=== PATIENT | female | born 1980 | race Caucasian/White ===

== ENCOUNTER 2019-08-29 09:15 | Inpatient (IN) | payer OTHER ==
[2019-08-29] MEDS ORDERED: DEXTROSE 5%-LACTATED RINGERS 1,000 ML IV SCH (09:30)
[2019-08-29] MEDS ORDERED: OXYTOCIN 30 UNITS in 0.9% NS 30 UNIT/500 ML INFUS.BAG IVPB SCH (10:00)
[2019-08-29] MEDS ORDERED: OXYTOCIN 20 UNITS in 0.9% NS 20 UNIT/1,000 ML INFUS.BAG IV ONE ×2 (10:22→16:16)
[2019-08-29 10:36] LABS: BASO % 0.4 % (0-2.0); EOS % 0.9 % (0-4.5); HEMOGLOBIN 10.9 GM/dL (10.7-15.3); LYMPH % 8.6 % (8-40); MCH 26.7 pg (25.7-33.7); MCHC 33.1 g/dl (32.0-36.0); MEAN CELL VOLUME 80.6 fl (80-96); MEAN PLT VOLUME 9.5 fl (7.5-11.1); MONO % 6.4 % (3.8-10.2); NEUT % 83.7 % (42.8-82.8); PLATELET COUNT 391 K/MM3 (134-434); RBC 4.09 M/mm3 (3.60-5.2); RDW 16.1 % (11.6-15.6); WHITE BLOOD COUNT 8.4 K/mm3 (4.0-10.0)
[2019-08-29 10:49] LABS: INR 0.88 (0.83-1.09); PROTHROMBIN TIME (PATIENT) 10.4 SEC (9.7-13.0)
[2019-08-29 10:52] LABS: ACTIVATED PTT 31.1 SECONDS (25.2-36.5)
[2019-08-29 11:20] LABS: BLOOD UREA NITROGEN 15.1 mg/dL (7-18); CALCIUM 8.8 mg/dL (8.5-10.1); CREATININE 0.8 mg/dL (0.55-1.3); POTASSIUM 3.9 mmol/L (3.5-5.1)
[2019-08-29] MEDS ORDERED: BUTORPHANOL TARTRATE 1 MG/ML VIAL ONE ×2 (13:54)
[2019-08-29] MEDS ORDERED: PROMETHAZINE HCL 25 MG/1 ML VIAL ONE (13:54)
[2019-08-29 14:17] VITALS: BMI 38.7
[2019-08-29] MEDS ORDERED: LIDOCAINE HCL 1% PRESERVATIVE FREE - 30ML VIAL ONE (16:36)
[2019-08-29] MEDS: OXYTOCIN 20 UNITS in 0.9% NS 20 UNIT/1,000 ML INFUS.BAG IV SCH (16:45)
[2019-08-29] MEDS ORDERED: ACETAMINOPHEN 325 MG TABLET (FP) ONE (16:56)
[2019-08-29] MEDS ORDERED: IBUPROFEN 600 MG TABLET (FP) PO ONE (16:56)
[2019-08-29] MEDS ORDERED: BISACODYL 10 MG SUPP.RECT RC PRN (17:24)
[2019-08-29] MEDS ORDERED: BENZOCAINE 28 GM HEMORRHOIDAL OINTMENT TP PRN (17:24)
[2019-08-29] MEDS ORDERED: BENZOCAINE 20% 57 GM BOTTLE TP PRN (17:24)
[2019-08-29] MEDS ORDERED: oxyCODONE HCL 5 MG TABLET PO PRN (17:24)
[2019-08-29] MEDS ORDERED: WITCH HAZEL 50% (TUCKS) 40 PAD/JAR PAD TP PRN (17:24)
[2019-08-29] MEDS ORDERED: METHYLERGONOVINE MALEATE 0.2 MG/1 ML AMP IM PRN (17:24)
[2019-08-29] MEDS: ACETAMINOPHEN 325 MG TABLET (FP) PO PRN (17:30)
[2019-08-29] MEDS: IBUPROFEN 600 MG TABLET (FP) PO PRN (17:30)
--- NOTE | 2019-08-29 17:42 | HP ---
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: Alzheimer's, CVA, Dementia, Migraine, Multiple Sclerosis, Peripheral Neuropathy, Parkinson's, Seizure, Syncope, TIA, Vertigo, Other Cardiovascular: No: AFIB, Aneurysm, Aortic Insufficiency, Aortic Stenosis, CAD, CHF, Deep Vein Thrombosis, HTN, Hyperlipdemia, MD, Mitral Insufficiency, Mitral Stenosis, Murmur, Pulmonary Hypertension, Other Pulmonary: No: Asthma, Bronchitis, Cancer, COPD, O2 Dependent, Pneumonia, Previously Intubated, Pulmonary Embolus, Pulmonary Fibrosis, Sleep Apnea, Other Gastrointestinal: No: Ascites, Cancer, Constipation, Crohn's Disease, Diverticulitis, Diverticulosis, Esophageal Varices, Gastritis, GERD, GI Bleed, Hemorrhoids, Hiatal Hernia, Inflamatory Bowel Disease, Irritable Bowel Disease, Pancreatitis, Peptic Ulcer Disease, Ulcerative Colitis, Other Hepatobiliary: No: Cirrhosis, Cholelithiasis, Cholecystitis, Choledocholithiasis , Hepatitis A, Hepatitis B, Hepatitis C, Other Renal/: No: Renal Failure, Renal Inusuff, BPH, Cancer, Hematuria, Hemodialysis , Neurogenic Bladder, Renal Calculi, UTI, Other Reproductive: No: Ectopic , Endometriosis, Fibroids, PID, Polycystic Ovary Syndrome, Postmenopausal, Other ...: 6 ...Para: 3 ...Term: 3 ...Spon : 2 ...EDC by Slim: 09/04/19 Heme/Onc: No: Anemia, B12 Deficiency, Bleeding Disorder, Cancer, Current Chemotherapy, Current Radiation Therapy, Hemochromatosis, Hypercoaguable State, Myeloproliferative Synd, Sickle Cell Disease, Sickle Cell Trait, Thrombocytopenia, Other Infectious Disease: No: AIDS, C-Diff, Herpes Zoster, HIV, MRSA, STD's, Tuberculosis, VREF, Other Psych: No: Addictions, Anxiety, Bipolar, Depression, Panic, Psychosis, Schizophrenia, Other Musculoskeletal: No: Bursitis, Chronic low back pain, Hemiparesis, Hemiplegia, Osteoarthritis, Paraplegia, Other Rheumatology: No: Fibromyalgia, Gout, Lupus, Rheumatoid Arthritis, Sarcoidosis, Vasculitis, Other ENT: No: Allergic Rhinitis, Sinusitis, Other Endocrine: No: Joe's Disease, Bc's Disease, Diabetes Insipidus, Diabetes Mellitus, Hyperparathyroidism, Hyperthyroidism, Hypothyroidism, Osteopenia, SIADH, Other Dermatology: No: Basal Cell, Cellulitis, Eczema, Melanoma, Psoriasis, Squamous Cell, Other - Past Surgical History Past Surgical History: No: None, AAA Repair, AICD, Amputation, Appendectomy, Arthrosocopy, AV Fistula/Graft, Bariatric Surgery, Breast Biopsy, Bypass, CABG, Carotid Endarterectomy, Cataract Removal, Cholecystectomy, Colectomy, Colonoscopy, Colostomy, Craniotomy, , Cystectomy, Hernia Repair, Hysterectomy, Ileal Conduit, Ileosotomy, Joint Replacement, Kidney Transplant, Laminectomy, Liver Transplant, Mastectomy, Nephrectomy, Oopherectomy, Orchiectomy, Permanent Pacemaker, Prostatectomy, Splenectomy, Stent, Thoracotomy , TURP, Tonsillectomy, Tubal Ligation, Upper Endoscopy, Valve Replacement, Vasectomy, Vein Stripping/Ligation Hx Myomectomy: No Hx Transabdominal Cerclage: No - Advance Directives Advance Directives: Yes: Living Will - Smoking History Smoking history: Never smoked Have you smoked in the past 12 months: No - Alcohol/Substance Use Hx Alcohol Use: No History of Substance Use: reports: None - Social History Usual Living Arrangement: Yes: Alone, With Significant Other Do you think of yourself as: Straight/Heterosexual ADL: Independent History of Recent Travel: No Home Medications - Allergies Allergies/Adverse Reactions: Allergies Allergy/AdvReac Type Severity Reaction Status Date / Time No Known Drug Allergies Allergy Verified 08/29/19 11:01 - Home Medications Home Medications: Ambulatory Orders Vitamin Tablet 1 tablet PO DAILY 08/29/19 Family Medical History Family History: Denies Review of Systems - Review of Systems Constitutional: reports: No Symptoms Eyes: reports: No Symptoms HENT: reports: No Symptoms Neck: reports: No Symptoms Cardiovascular: reports: No Symptoms Respiratory: reports: No Symptoms Gastrointestinal: reports: No Symptoms Genitourinary: reports: No Symptoms Breasts: reports: No Symptoms Reported Musculoskeletal: reports: No Symptoms Integumentary: reports: No Symptoms Neurological: reports: No Symptoms Endocrine: reports: No Symptoms Hematology/Lymphatic: reports: No Symptoms Psychiatric: reports: No Symptoms Physical Exam - Maternity Vital Signs: Vital Signs Temperature 98.0 F 08/29/19 13:00 Pulse Rate 102 H 08/29/19 13:00 Respiratory Rate 20 08/29/19 13:00 Blood Pressure 131/88 11/01/19 13:00 O2 Sat by Pulse Oximetry (%) Constitutional: Yes: Well Nourished, No Distress, Calm Eyes: Yes: WNL, Conjunctiva Clear, EOM Intact HENT: Yes: WNL, Atraumatic, Normocephalic Neck: Yes: WNL, Supple, Trachea Midline Cardiovascular: Yes: WNL, Regular Rate and Rhythm Lungs: Clear to auscultation Breast(s): Yes: WNL - Abdominal Exam/OB Fundal Height: 38 Number of Fetuses: Single Presentation: Vertex Contractions: Yes Regularity: Irregular Intensity: Mild Monitor Mode: External Heart Rate Location: [facility] Category: I Accelerations: Uniform Decelerations: None - Vaginal Exam/OB Vaginal Bleediing: No Speculum Exam: No Dilatation (cm): 3 Effacement (%): 70 - Labs Lab Results: CBC, BMP 08/29/19 10:20 08/29/19 10:20 Assessment/Plan for induction per pt
--- NOTE | 2019-08-29 17:56 | PN ---
Progress Note (short form) - Note Progress Note: 430 pm , pushing soon, 9 cm , -1, 90%, feel a lot of pressure
--- NOTE | 2019-08-29 17:57 | PN ---
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
[2019-08-30] MEDS: OXYTOCIN 20 UNITS in 0.9% NS 20 UNIT/1,000 ML INFUS.BAG IV SCH (00:30)
[2019-08-30] MEDS ORDERED: IBUPROFEN 600 MG TABLET (FP) PO ONE (02:30)
[2019-08-30] MEDS: IBUPROFEN 600 MG TABLET (FP) PO PRN ×3 (02:30→12:43)
[2019-08-30] MEDS ORDERED: ACETAMINOPHEN 325 MG TABLET (FP) ONE (02:30)
[2019-08-30] MEDS: ACETAMINOPHEN 325 MG TABLET (FP) PO PRN ×3 (02:39→12:42)
[2019-08-30 08:14] LABS: BASO % 0.1 % (0-2.0); EOS % 0.8 % (0-4.5); HEMATOCRIT 29.7 % (32.4-45.2); HEMOGLOBIN 9.7 GM/dL (10.7-15.3); LYMPH % 6.2 % (8-40); MCH 26.4 pg (25.7-33.7); MCHC 32.7 g/dl (32.0-36.0); MEAN CELL VOLUME 80.9 fl (80-96); MEAN PLT VOLUME 9.6 fl (7.5-11.1); MONO % 6.2 % (3.8-10.2); NEUT % 86.7 % (42.8-82.8); PLATELET COUNT 338 K/MM3 (134-434); RBC 3.67 M/mm3 (3.60-5.2); RDW 16.3 % (11.6-15.6)
--- NOTE | 2019-08-30 15:16 | PN ---
Post Progress Note Post Day: 1 Type of Delivery: Vital Signs: Vital Signs Temperature 98.2 F 08/30/19 13:09 Pulse Rate 86 08/30/19 13:25 Respiratory Rate 20 08/30/19 13:25 Blood Pressure 137/87 08/30/19 13:25 O2 Sat by Pulse Oximetry (%) Breast Exam: Yes: Soft Uterus: Yes: Fundus Firm, Fundus below umbilicus Abdomen/GI: Yes: Abdomen soft, Passing flatus, Tolerating PO Lochia: Yes: Serosa Lochia, amount: Small Extremities: Yes: Calves non-tender Perineum: Yes: Laceration Activity: Ambulating - Labs Labs: CBC WBC 12.0 K/mm3 (4.0-10.0) H 08/30/19 07:06 RBC 3.67 M/mm3 (3.60-5.2) 08/30/19 07:06 Hgb 9.7 GM/dL (10.7-15.3) L 08/30/19 07:06 Hct 29.7 % (32.4-45.2) L 08/30/19 07:06 MCV 80.9 fl (80-96) 08/30/19 07:06 MCH 26.4 pg (25.7-33.7) 08/30/19 07:06 MCHC 32.7 g/dl (32.0-36.0) 08/30/19 07:06 RDW 16.3 % (11.6-15.6) H 08/30/19 07:06 Plt Count 338 K/MM3 (134-434) 08/30/19 07:06 MPV 9.6 fl (7.5-11.1) 08/30/19 07:06 Absolute Neuts (auto) 10.4 K/mm3 (1.5-8.0) H 08/30/19 07:06 Neutrophils % 86.7 % (42.8-82.8) H 08/30/19 07:06 Lymphocytes % 6.2 % (8-40) L D 08/30/19 07:06 Monocytes % 6.2 % (3.8-10.2) 08/30/19 07:06 Eosinophils % 0.8 % (0-4.5) 08/30/19 07:06 Basophils % 0.1 % (0-2.0) 08/30/19 07:06 Nucleated RBC % 0 % (0-0) 08/30/19 07:06 Assessment/Plan walking well, can go home tomorrow
--- NOTE | 2019-08-30 15:19 | DS ---
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: Vital Signs Temperature 98.2 F 08/30/19 13:09 Pulse Rate 86 08/30/19 13:25 Respiratory Rate 20 08/30/19 13:25 Blood Pressure 137/87 08/30/19 13:25 O2 Sat by Pulse Oximetry (%) Constitutional: Yes: Well Nourished, No Distress, Calm Eyes: Yes: WNL, Conjunctiva Clear, EOM Intact HENT: Yes: WNL, Atraumatic, Normocephalic Neck: Yes: WNL, Supple, Trachea Midline Cardiovascular: Yes: WNL, Regular Rate and Rhythm Respiratory: Yes: WNL, Regular, CTA Bilaterally Gastrointestinal: Yes: WNL, Normal Bowel Sounds, Soft ...Rectal Exam: Yes: WNL Renal/: Yes: WNL Pelvis: Yes: WNL External Genitalia: Yes: Normal Internal Exam Deferred: No Vaginal Exam: Yes: Normal Cervix: Yes: Normal Uterus: Yes: Normal Adnexa: Normal: Bilateral ....Post : Yes: Uterus firm, Uterus non-tender Breast(s): Yes: WNL Musculoskeletal: Yes: WNL Edema: Yes Edema: LUE: 1+, RUE: 1+, LLE: 1+, RLE: 1+ Integumentary: Yes: WNL Wound/Incision: Yes: Clean/Dry, Well Approximated Neurological: Yes: WNL, Alert, Oriented ...Motor Strength: WNL Psychiatric: Yes: WNL, Alert, Oriented Labs: CBC, BMP 08/30/19 07:06 08/29/19 10:20 Delivery - Delivery Vaginal Delivery: No Problems Type of Anesthesia: None Episiotomy/Laceration: None, 1st degree EBL (cc): 350 Delivery, Single - Stages of Labor Date 1st Stage Initiatied: 08/29/19 Time 1st Stage Initiated: 13:00 Date 2nd Stage Initiated: 08/29/19 Time 2nd Stage Initiated: 16:20 Date of Delivery: 08/29/19 Time of Delivery: 16:42 Time Placenta Delivered: 16:45 Placenta: Yes: Spontaneous - 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 Gender: Female Weight: 2.977 kg Position: Left, OA Total Hours ROM (Hrs/Mins): 3H25M - 1 Minute Total Score: 8 5 Minutes Total Score: 9 - [place] Feeding Plan Initial Plan: Elected not to breastfeed exclusively throughout hospitalization Benefits of Exclusively reinforced: Yes Discharge Summary Problems reviewed: Yes Reason For Visit: INDUCTION OF LABOR Procedures: Principal: Hospital Course: uneventful Health Concerns: none Plan of Treatment: oob as much as possible Goals: return to work in 8 weeks Condition: Good - Instructions Diet, Activity, Other Instructions: regular, routine post instruction Disposition: HOME - Home Medications Comprehensive Discharge Medication List: Ambulatory Orders Vitamin Tablet 1 tablet PO DAILY 08/29/19 motrin sent from office Prescription Drug Monitoring Program (I-STOP) results: I-STOP reviewed and no issues identified
[2019-08-30] MEDS ORDERED: SENNOSIDES/DOCUSATE COMBO (SENNA PLUS) TABLET (UD) PO PRN (22:00)
[2019-08-31] MEDS ORDERED: DIPHTH,PERTUSS(ACELL),TET 0.5 ML DISP.SYRIN IM ONE (10:00)
[2019-08-31] MEDS: IBUPROFEN 600 MG TABLET (FP) PO PRN ×3 (11:42→20:27)
[2019-08-31] MEDS: ACETAMINOPHEN 325 MG TABLET (FP) PO PRN ×3 (11:42→20:27)
[2019-08-31] MEDS: LABETALOL HCL 100 MG TABLET (FP) PO SCH ×2 (11:42→22:04)
[2019-08-31] MEDS ORDERED: LABETALOL HCL 100 MG TABLET (FP) PO SCH ×2 (22:00)
[2019-08-31 22:02] VITALS: TEMP 98.5
[2019-09-01] MEDS: IBUPROFEN 600 MG TABLET (FP) PO PRN (01:32)
[2019-09-01] MEDS: ACETAMINOPHEN 325 MG TABLET (FP) PO PRN (01:32)
[2019-09-01 09:08] VITALS: BP 136/90; PULSE 83
[2019-09-01] MEDS: LABETALOL HCL 100 MG TABLET (FP) PO SCH (09:08)
== END 2019-09-01 10:20 | disposition home or self-care (01) | DRG 560 ==
LOC: JLDR 09:15 → J3W 08-30 07:49
PROVIDERS: ADMIT Obstetrics & Gynecology; ATTEND Obstetrics & Gynecology
PROC: 0HQ9XZZ Repair Perineum Skin, External Approach (ICD-10-PCS; principal; 2019-08-29)
PROC: 10E0XZZ Delivery of Products of Conception, External Approach (ICD-10-PCS; 2019-08-29)
DX: O70.0 First degree perineal laceration during delivery (principal); Z3A.39 39 weeks gestation of pregnancy; Z37.0 Single live birth
CPT/HCPCS: 36415; 59409; 80048; 85025; 85461; 85610; 85730; 86593; 86850; 86900; 86901; 86999; 90715